=== PATIENT | male | born 1960 | race Caucasian/White ===

== ENCOUNTER 2017-05-14 11:15 | Emergency (ER) | payer OTHER ==
[~2017-05-14] VITALS: Ht 170.2 cm; Wt 69.3 kg
[2017-05-14 11:18] VITALS: BP 152/77; PULSE 97; RESP 16; TEMP 98.2; O2SAT 98
[2017-05-14] MEDS ORDERED: ASPI81CH6 CHEW (11:34)
[2017-05-14] MEDS ORDERED: ATOR10TA15 PO (11:34)
[2017-05-14] MEDS ORDERED: PLAV75TA29 PO (11:34)
[2017-05-14] MEDS ORDERED: FAMO1TAB37 PO (11:34)
[2017-05-14] MEDS ORDERED: RAMI2.5C PO (11:34)
[2017-05-14] MEDS ORDERED: LORA0.5T PO (11:34)
--- NOTE | 2017-05-14 12:15 | RADRPT ---
EXAM DATE/TIME: 05/14/2017 11:29 [facility] COMPARISON: No previous studies available for comparison. INDICATIONS : Left foot pain after falling yesterday. MEDICAL HISTORY : Hypertension. SURGICAL HISTORY : None. ENCOUNTER: Initial ACUITY: 2 days PAIN SCORE: 10/10 LOCATION: Left medial malleolus. FINDINGS: Three view examination of the left foot demonstrates no soft tissue swelling, dislocation, or fractur e. The tarsal bones appear intact. The interphalangeal and metatarsophalangeal joints are intact. The calcaneus is intact. Bony mineralization is normal. CONCLUSION: No acute disease. Jose Scott MD on May 14, 2017 at 12:13 Board Certified Radiologist. This report was verified electronically.
--- NOTE | 2017-05-14 13:08 | RADRPT ---
EXAM DATE/TIME: 05/14/2017 12:48 [facility] COMPARISON: No previous studies available for comparison. INDICATIONS : Left ankle pain after falling yesterday. MEDICAL HISTORY : Hypertension. SURGICAL HISTORY : None. ENCOUNTER: Initial ACUITY: 2 days PAIN SCORE: 10/10 LOCATION: Left medial malleolus. FINDINGS: No fracture is seen. The ankle is normally aligned. There is soft tissue swelling seen laterally. CONCLUSION: Lateral soft tissue swelling. Jose Scott MD on May 14, 2017 at 13:04 Board Certified Radiologist. This report was verified electronically.
--- NOTE | 2017-05-14 13:13 | PD ---
HPI Chief Complaint: Injury Time Seen by Provider: 12:35 Travel History International Travel<30 days: No Contact w/Intl Traveler<30days: No Traveled to known affect area: No History of Present Illness HPI 56 -year-old male here with left ankle and foot pain after twisting injury yesterday. He does not fall to the ground. He has pain and swelling the left ankle. No paresthesia or weakness. Pain is worse with weightbearing and relieved with rest. Severity is moderate. PFSH Past Medical History Hx Anticoagulant Therapy: Yes (PLAVIX) Cardiovascular Problems: Yes (ND, HTN, CHOL) High Cholesterol: Yes Diabetes: No GERD: Yes Hypertension: Yes Myocardial Infarction: Yes Tetanus Vaccination: < 5 Years Influenza Vaccination: Yes Past Surgical History Other Surgery: Yes (RIGHT BICEP REPAIR) Social History Alcohol Use: Yes (occ) Tobacco Use: No Substance Use: No Allergies-Medications (Allergen,Severity, Reaction): Coded Allergies: No Known Allergies (Unverified , 05/14/17) Reported Meds & Prescriptions Reported Meds & Active Scripts Active Reported Lorazepam 0.5 Mg Tab 0.5 Mg PO HS PRN Pepcid (Famotidine) 20 Mg Tab 20 Mg PO BID Aspirin Low Dose (Aspirin) 81 Mg Chew 81 Mg CHEW DAILY Atorvastatin (Atorvastatin Calcium) 10 Mg Tab 10 Mg PO HS Ramipril 2.5 Mg Cap 2.5 Mg PO BID Plavix (Clopidogrel Bisulfate) 75 Mg Tab 75 Mg PO DAILY Review of Systems Except as stated in HPI: all other systems reviewed are Neg General / Constitutional: No: Fever Eyes: No: Visual changes HENT: No: Headaches Cardiovascular: No: Chest Pain or Discomfort Physical Exam Narrative GENERAL: Alert male. Well-appearing. SKIN: Warm and dry. HEAD: Normocephalic. EYES: No scleral icterus. No injection or drainage. NECK: Supple, trachea midline. No JVD or lymphadenopathy. CARDIOVASCULAR: Regular rate and rhythm without murmurs, gallops, or rubs. RESPIRATORY: Breath sounds equal bilaterally. No accessory muscle use. GASTROINTESTINAL: Abdomen soft, non-tender, nondistended. MUSCULOSKELETAL: No cyanosis. Left lower extremity: Notable tenderness and swelling to the lateral malleolus. No deformity. 2+ dorsal pedis pulse. Normal sensation. Brisk cap refill. BACK: Nontender without obvious deformity. No CVA tenderness. Data Data Last Documented VS Vital Signs Date Time Temp Pulse Resp B/P (MAP) Pulse Ox O2 Delivery O2 Flow Rate FiO2 05/14/17 11:18 98.2 97 16 152/77 (102) 98 Orders Orders Foot, Complete (Epe1dog) (05/14/17 ) Ankle, Limited (Ap&Lat) (05/14/17 ) Ed Discharge Order (05/14/17 13:13) Splint Or Brace Apply/Monitor (05/14/17 13:13) Crutches (05/14/17 13:16) MDM Medical Decision Making Medical Screen Exam Complete: Yes Emergency Medical Condition: Yes Differential Diagnosis Ankle sprain, fibular fracture, metatarsal fracture Narrative Course 56-year-old male here with left ankle and foot pain and swelling after twisting injury yesterday. The extremity is neurovascularly intact. X-rays are negative for fracture. Diagnosis Primary Impression: Ankle sprain Qualified Codes: S93.402A - Sprain of unspecified ligament of left ankle, initial encounter Referrals: Primary Care Physician Additional Instructions: Ice and elevate the extremity. Where the splint for one week. Begin weightbearing when possible. Ibuprofen as needed for pain and swelling Disposition: 01 DISCHARGE HOME Condition: Stable Aidee Dueñas May 14, 2017 13:13
== END 2017-05-14 13:58 | disposition home or self-care (01) ==
LOC: PHEFT 11:15
DX: S93.402A Sprain of unspecified ligament of left ankle, initial encounter (principal); R22.42 Localized swelling, mass and lump, left lower limb; I10 Essential (primary) hypertension; K21.9 Gastro-esophageal reflux disease without esophagitis; E78.00 Pure hypercholesterolemia, unspecified; I25.2 Old myocardial infarction; Z79.01 Long term (current) use of anticoagulants; X50.1XXA Overexertion from prolonged static or awkward postures, initial encounter
CPT/HCPCS: 73600; 73630; 99283; E0113; L1906